=== PATIENT | female | born 1985 | race Caucasian/White ===

== ENCOUNTER 2019-07-03 13:00 | Outpatient (CLI) | payer OTHER, SELFPAY ==
[2019-07-03] VITALS (12 sets, daily range): BP systolic 105–122; BP diastolic 63–73; PULSE 60–95; TEMP 98–98.3; O2SAT 93–100; BMI 23.8
[2019-07-03 13:30] LABS: Mucous, Urine 0 SEEN /hpf (<or=2+)
[2019-07-03 13:42] LABS: Color, Urine Yellow (Yellow); Glucose, Dipstick Normal (Normal); Leukocyte Esterase-Dipstick 25 /ul (Negative); Nitrite-Dipstick Negative (Negative); Occult Blood-Urine 250 /ul (Negative); Protein-Dipstick 15 mg/dl (Negative); Urine Bilirubin Dipstick Negative (Negative); Urine Clarity Sl. Cloudy (Clear); Urine Urobilinogen Normal (Normal)
[2019-07-03 13:47] LABS: Ketone-Dipstick 150 mg/dl (Negative)
[2019-07-03 13:59] LABS: White Blood Cells 5-10 SEEN /hpf (0-5)
[2019-07-03 14:00] LABS: Bacteria 3+ /hpf (None Seen); Red Blood Cells-Urine > 100 SEEN /hpf (0-5); Squamous Epithelial Cells - UA 10-25 SEEN /hpf (5-10)
[2019-07-03] MEDS: Lactated Ringers 1,000 ML 500 ML IV (14:00)
[2019-07-03] MEDS: HYDROmorphone 1 MG/ML Syringe IV (14:16)
[2019-07-03 14:24] LABS: Prothrombin Time (Protime)PT. 13.2 SECONDS (11.7-14.9)
[2019-07-03 14:25] LABS: Partial Thromboplast Time 31.3 Seconds (24.1-36.2)
[2019-07-03 14:27] LABS: Absolute Lymphocyte Count 1.58 X10^3/uL (0.83-4.51); Absolute Neutrophil Count 6.4 X10^3/uL (2.0-7.7); Basophil# 0.01 X10^3/uL; Basophil% 0.1 % (0-1); Eosinophil# 0.02 X10^3/uL; Eosinophils% 0.2 % (0-5); Hematocrit 36.2 % (37-47); Lymphocyte # 1.58 X10^3/ul (4.0); Lymphocyte % 18.9 % (19-41); Mean Corp Hgb Conc 33.1 g/dL (32-36); Mean Corpuscular Hgb 28.9 pg (27.0-32.0); Mean Corpuscular Volume 87.2 fL (81-99); Mean Platelet Vol. 13.8 fl (6.2-12.0); Monocyte# 0.32 X10^3/uL; Monocyte% 3.8 % (0-10); NRBC Flagged by Analyzer 0 % (0-5); Neutrophil # 6.39 X10^3/uL (2.7-7.7); Neutrophil % 76.6 % (47-70); Platelet Count 101 K/mm3 (150-450); RBC Distribution Width CV 13.1 % (11.6-14.6); RBC Distribution Width SD 41.4 fl (35.1-43.9); Red Blood Count 4.15 M/mm3 (4.2-5.4); White Blood Count 8.4 K/mm3 (4.4-11.0)
[2019-07-03 14:29] LABS: Creatinine, Serum 0.55 mg/dL (0.55-1.02)
[2019-07-03 14:30] LABS: AST(SGOT) 15 U/L (15-37); Alanine Aminotransfer ALT/SGPT 13 U/L (13-56); EST Glomerular Filtration Rate 135 mL/min (>60); Est Glom Filt Rate - Afr Amer 163 mL/min (>60)
[2019-07-03 14:33] LABS: Protein, Urine (Random) 31.7 mg/dL (<11.9); Protein:Creat Ratio 353 mg/g CRE (0-200)
[2019-07-03] MEDS: Cefazolin 2 GM in 0.9% Normal Saline 100 ML IV (16:06)
[2019-07-03] MEDS: Acetaminophen 500 MG Tablet 1000 MG PO (17:11)
[2019-07-03] MEDS: Ondansetron 4 MG/2 ML Vial IV (18:12)
--- NOTE | 2019-07-03 18:13 | OB.TRI.NOTE ---
History of Present Illness Date of Service: 07/03/19 Reason For Visit: RT SIDE FLANK PAIN Date of Service: 07/03/19 Final MARLENY: 10/06/19 Final MARLENY Source: LMP Gestational age: 26 Weeks and 3 Days History of Present Illness: 34-year-old 4 para 3 presents at 26 weeks 5 days planing of some right-sided pain. It started somewhat suddenly at 9 AM this morning when she was just doing her normal activities. It comes in waves. It feels very similar to when she is had kidney stones in the past. She does not feel like eating but she has been able to drink and stay hydrated. Took some Tylenol this morning but when the pain worsened she came in the labor and delivery triage. Pain is significantly improved after 1 dose of IV Dilaudid. She did have some nausea and then an emesis and states she feels somewhat better after this. She denies any fevers or chills. Allergies aloe vera Allergy (Verified 01/30/15 01:56) Rash Laboratory Studies: Laboratory Tests 07/03/19 07/03/19 07/03/19 Range/Units 14:00 14:00 14:00 WBC 8.4 (4.4-11.0) K/mm3 RBC 4.15 L (4.2-5.4) M/mm3 Hgb 12.0 (12.0-15.0) g/dL Hct 36.2 L (37-47) % MCV 87.2 (81-99) fL MCH 28.9 (27.0-32.0) pg MCHC 33.1 (32-36) g/dL RDW Std Deviation 41.4 (35.1-43.9) fl RDW Coeff of Donya 13.1 (11.6-14.6) % Plt Count 101 L (150-450) K/mm3 MPV 13.8 H (6.2-12.0) fl Immature Gran % (Auto) 0.400 (0.0-0.9) % Neut % (Auto) 76.6 H (47-70) % Lymph % (Auto) 18.9 L (19-41) % [place] % (Auto) 3.8 (0-10) % Eos % (Auto) 0.2 (0-5) % Baso % (Auto) 0.1 (0-1) % Absolute Neuts (auto) 6.4 (2.0-7.7) X10^3/uL Absolute Lymphs (auto) 1.58 (0.83-4.51) X10^3/uL Nucleated RBC % 0 (0-5) % PT (11.7-14.9) SECONDS INR APTT (24.1-36.2) Seconds Creatinine 0.55 (0.55-1.02) mg/dL Estim Creat Clear Calc 136.20 ml/min Est GFR (MDRD) Af Amer 163 (>60) mL/min Est GFR (MDRD) Non-Af 135 (>60) mL/min Uric Acid 3.0 (2.6-6.0) mg/dL AST 15 (15-37) U/L ALT 13 (13-56) U/L Urine Color (Yellow) Urine Clarity (Clear) Urine pH (5.0 - 8.0) Ur Specific [place] (1.002-1.030) Urine Protein (Negative) mg/dl Urine Glucose (UA) (Normal) mg/dl Urine Ketones (Negative) mg/dl Urine Occult Blood (Negative) /ul Urine Nitrite (Negative) Urine Bilirubin (Negative) mg/dL Urine Urobilinogen (Normal) mg/dl Ur Leukocyte Esterase (Negative) /ul Urine RBC (0-5) /hpf Urine WBC (0-5) /hpf Ur Squamous Epith Cells (5-10) /hpf Urine Bacteria (None Seen) /hpf Urine Mucus (<or=2+) /hpf U Random Total Protein 31.7 H (<11.9) mg/dL Urine Creatinine 89.80 (NO RANGE EST.) mg/dL Protein/Creatinin Ratio 353 H (0-200) mg/g CRE 07/03/19 07/03/19 Range/Units 14:00 13:15 WBC (4.4-11.0) K/mm3 RBC (4.2-5.4) M/mm3 Hgb (12.0-15.0) g/dL Hct (37-47) % MCV (81-99) fL MCH (27.0-32.0) pg MCHC (32-36) g/dL RDW Std Deviation (35.1-43.9) fl RDW Coeff of Donya (11.6-14.6) % Plt Count (150-450) K/mm3 MPV (6.2-12.0) fl Immature Gran % (Auto) (0.0-0.9) % Neut % (Auto) (47-70) % Lymph % (Auto) (19-41) % [place] % (Auto) (0-10) % Eos % (Auto) (0-5) % Baso % (Auto) (0-1) % Absolute Neuts (auto) (2.0-7.7) X10^3/uL Absolute Lymphs (auto) (0.83-4.51) X10^3/uL Nucleated RBC % (0-5) % PT 13.2 (11.7-14.9) SECONDS INR 1.0 APTT 31.3 (24.1-36.2) Seconds Creatinine (0.55-1.02) mg/dL Estim Creat Clear Calc ml/min Est GFR (MDRD) Af Amer (>60) mL/min Est GFR (MDRD) Non-Af (>60) mL/min Uric Acid (2.6-6.0) mg/dL AST (15-37) U/L ALT (13-56) U/L Urine Color Yellow (Yellow) Urine Clarity Sl. Cloudy (Clear) Urine pH 8.0 (5.0 - 8.0) Ur Specific [place] 1.010 (1.002-1.030) Urine Protein 15 H (Negative) mg/dl Urine Glucose (UA) Normal (Normal) mg/dl Urine Ketones 150 H (Negative) mg/dl Urine Occult Blood 250 H (Negative) /ul Urine Nitrite Negative (Negative) Urine Bilirubin Negative (Negative) mg/dL Urine Urobilinogen Normal (Normal) mg/dl Ur Leukocyte Esterase 25 H (Negative) /ul Urine RBC > 100 SEEN (0-5) /hpf Urine WBC 5-10 SEEN (0-5) /hpf Ur Squamous Epith Cells 10-25 SEEN (5-10) /hpf Urine Bacteria 3+ (None Seen) /hpf Urine Mucus 0 SEEN (<or=2+) /hpf U Random Total Protein (<11.9) mg/dL Urine Creatinine (NO RANGE EST.) mg/dL Protein/Creatinin Ratio (0-200) mg/g CRE Review of Systems Constitutional: Reports: Anorexia. Denies: Chills, Fever, Malaise, Weakness HEENT: Denies: Head Aches Cardiovascular: Denies: Chest Pain Respiratory: Denies: Shortness of Breath Gastrointestinal: Reports: Abdominal Pain, Nausea, Vomiting. Denies: Constipation, Diarrhea Genitourinary: Reports: Frequency. Denies: Dysuria, Hematuria, Retention, Urgency Skin: Denies: Rash Physical Exam General: Alert, Cooperative, No apparent distress Abdomen: Soft, Non-Distended, Gravid, Tender - no rebound, some voluntary guarding right lower quadrant. Fundus nontender, no referred pain, Appropriate for Gestational Age Extremities:: No edema NST - FHR Rate Baby A Baseline: normal Variability:: Moderate Accelerations:: 10 x 10 Decelerations:: None NST Reactive:: Appropriate for gestational age FHR Category:: Category I Uterine Activity:: quiet Impression/Plan 34-year-old 4 para 3 at 26-5/7 weeks gestation with some abdominal pain. Pain consistent with kidney stone. No fever, no rebound. Discussed with the patient my main concern is ruling out appendicitis. However, when I move the patient's bed, move her fundus from the left towards the right, and move her legs, she does not have any abdominal pain. At this point, patient is comfortable going home pushing fluids, using oxycodone as needed for breakthrough pain and taking Tylenol regularly. If the pain worsens, she should return and be reevaluated. If she has persistent nausea or vomiting, change in bowel movements, fever or any other issues she should notify the office or return immediately. There is no evidence of labor. Patient is comfortable with this plan.
== END 2019-07-03 19:20 | disposition home or self-care (01) ==
LOC: WPOUT 13:08 → OBT 13:08
PROVIDERS: Visit Provider Obstetrics & Gynecology
DX: O26.892 Other specified pregnancy related conditions, second trimester (principal); R10.9 Unspecified abdominal pain; R11.2 Nausea with vomiting, unspecified; Z3A.26 26 weeks gestation of pregnancy; Z87.442 Personal history of urinary calculi
CPT/HCPCS: 96361 ×4; 96365; 96374; 96375; 59050; 81001; 82565; 82570; 84156; 84450; 84460; 84550; 85025; 85610; 85730; 87086; 87088; 94760; 99218; J7120; G0378; J2405

== ENCOUNTER 2019-09-22 18:05 | Inpatient (IN) | payer OTHER, SELFPAY ==
[2019-07-03 13:21] VITALS: BMI 23.8
[2019-09-22] VITALS (19 sets, daily range): BP systolic 120–151; BP diastolic 79–103; PULSE 74–103; TEMP 36.6–37.9; O2SAT 97–98; BMI 26.5
[2019-09-22 17:11] LABS: Hematocrit 33.3 % (37-47); Hemoglobin 10.5 g/dL (12.0-15.0); Mean Corp Hgb Conc 31.5 g/dL (32-36); Mean Corpuscular Hgb 27.3 pg (27.0-32.0); Mean Corpuscular Volume 86.5 fL (81-99); POSITIVE COUNT YES; POSITIVE MORPHOLOGY YES; Platelet Count 75 K/mm3 (150-450); RBC Distribution Width SD 43.3 fl (35.1-43.9); Red Blood Count 3.85 M/mm3 (4.2-5.4); White Blood Count 5.8 K/mm3 (4.4-11.0)
[2019-09-22 17:19] LABS: Prothrombin Time (Protime)PT. 12.4 SECONDS (11.7-14.9); Scan Indicated on CBC? Y/N YES- FLAGS NOTED
[2019-09-22 17:20] LABS: Partial Thromboplast Time 31.3 Seconds (24.1-36.2)
[2019-09-22 17:33] LABS: Differential Comment SEE COMMENTS
[2019-09-22 17:34] LABS: Protein, Urine (Random) 45.7 mg/dL (<11.9); Protein:Creat Ratio 263 mg/g CRE (0-200)
[2019-09-22 17:38] LABS: AST(SGOT) 16 U/L (15-37); Alanine Aminotransfer ALT/SGPT 14 U/L (13-56); EST Glomerular Filtration Rate 103 mL/min (>60); Est Glom Filt Rate - Afr Amer 125 mL/min (>60); Estimated Creatinine Clearance 107.01 ml/min; Uric Acid 4.2 mg/dL (2.6-6.0)
--- NOTE | 2019-09-22 19:41 | PCM.HP.OB ---
History Date of Admission: 03/06/11 Final MARLENY: 10/06/19 Final MARLENY Source: US <20 weeks Gestational age: 38 Weeks and 0 Days History of this : This is a 34 year-old, 4 para 3 at 38-0/7 weeks with EDC of 10/06/2019 presents complaining of some mild intermittent visual changes and some elevated blood pressures. Denied any severe persistent headache. She denies epigastric pain. No regular contractions but some irregular cramping. [place] vaginal bleeding or leaking of fluid. Good movement. has been complicated to date by low platelets which may be gestational thrombocytopenia versus ITP. Following them and they have been trending down slowly. In addition, she had an abnormal sequential screen but a normal NIPT screen. She has also had kidney stones during the . Allergies aloe vera Allergy (Verified 09/22/19 16:40) Rash Home Medications: Home Medications Vits [Prenatabs FA ] 1 tablet PO DAILY 01/30/15 Smoking Status: Never smoker NST - FHR Rate Baby A Baseline: normal Variability:: Moderate Accelerations:: 15 x 15 Decelerations:: None NST Reactive:: Yes Uterine Activity:: Irregular contractions History Past Pregnancies: Past Pregnancies Delivery Date Name GA/ Weeks Outcome Route Wt Sex Labor Length Anesthesia Delivery Location Provider FOB Expected Delivery Method: Spontaneous Vaginal Review of Systems Constitutional: Denies: Chills, Fever Eyes: Reports: Blurred vision - intermittent and mild. HEENT: Denies: Difficulty Hearing Cardiovascular: Denies: Chest Pain Respiratory: Denies: Cough Gastrointestinal: Denies: Diarrhea, Vomiting Skin: Denies: Rash Neurological: Denies: Blurred vision, Slurred speech Physical Exam Vitals: Vital Signs Temp Pulse BP Pulse Ox 99.5 F H 98 151/103 H 97 09/22/19 19:23 09/22/19 19:24 09/22/19 19:24 09/22/19 19:24 General: Alert, Cooperative, No apparent distress Cardiovascular: Regular rate Lungs: Normal air movement Abdomen: Soft, Non Tender, Non-Distended, Gravid, Appropriate for Gestational Age Extremities:: No edema Assessment/Plan This is a 34 year-old, 4 para 3 at 38 weeks gestation with gestational hypertension. Risk benefits and alternatives to induction been discussed with patient, her questions were answered to her satisfaction she desires to proceed. No evidence of preeclampsia at this time. However, if blood pressures are in the severe range, develops other severe symptoms will initiate magnesium prophylaxis. Otherwise will admit for induction of labor. Pitocin induction of labor. Patient is comfortable this plan. She not have an epidural with any of her other deliveries. She is not an epidural candidate due to her gestational thrombocytopenia. Platelets are 75. She is not at increased risk of transfusion. The mean weight is less than 4500 g clinically and pelvis is clinically adequate to expect vaginal delivery.
[2019-09-22] MEDS: Lactated Ringers 1,000 ML 50 ML IV (19:50)
[2019-09-22] MEDS: Oxytocin 30 units/NS 500 ml 30 UNITS/500 ML IV.SOLN IV (19:50)
[2019-09-23] VITALS (21 sets, daily range): BP systolic 126–156; BP diastolic 79–105; PULSE 69–94; RESP 16–18; TEMP 36.4–37.7; O2SAT 95–99
[2019-09-23] MEDS: Ondansetron 4 MG/2 ML Vial IV ×2 (00:15→05:06)
[2019-09-23] MEDS: 0.9% Saline Lock 10 ML Syringe IV ×2 (00:15→05:06)
[2019-09-23] MEDS: Lactated Ringers 500 ML 999 ML IV ×2 (03:15→05:47)
[2019-09-23] MEDS: Oxytocin 30 units/NS 500 ml 30 UNITS/500 ML IV.SOLN 334 UNITS IV (08:05)
--- NOTE | 2019-09-23 08:38 | PCM.OPRPT ---
Problem List (1) 38 weeks gestation of Status: Acute (2) Multiparity Status: Acute (3) Gestational hypertension Status: Acute (4) History of ITP Status: Acute Report of Operation Date of Procedure: 09/23/19 Pre-Operative Diagnosis: 38 week gestation, chronic hypertension, multiparity, history ITP Post-Operative Diagnosis: As above Surgery/Procedure Performed:: Type of Anesthesia:: Local Special Medications: None Specimen's removed: Placenta Drains: None Estimated Blood Loss (mL): 100 Description of Procedure: Received a call that the patient was complete, and upon entering the room the patient had just delivered a viable male infant. The nurse reported an uncomplicated delivery with a loose nuchal cord x1. The was on maternal abdomen. Cord was already clamped. The cord was then cut. The placenta was delivered spontaneously and noted to be intact and normal-appearing with a three-vessel cord. A second-degree perineal laceration was noted. Local was injected. The second-degree laceration was repaired in usual fashion. Instrument and sponge counts were correct. Vaginal sweep was performed. Grafts/Implants Used: None - Complications None - Admit VTE Documentation VTE Present on Admission: No Vaginal Delivery Maternal Presentation: Medically Indicated Induction Medical Reason for Induction: Gestational Hypertension, - - ITP Amniotic Membrane Rupture Type: Artificial Amniotic Fluid Description: Clear Final MARLENY: 10/06/19 Gestational age: 38 Weeks and 1 Days Surgery/ Procedure Performed: Spontaneous Vaginal Delivery Type of Anesthesia: Local with 1% lidocaine Presentation: Vertex Placental Delivery Description: Spontaneous Cord Vessel Description: 3 Vessels Nuchal Cord Compression: Without compression Cord Entanglement: Around neck x 1, loose A gender: Male Episiotomy Description: None Laceration: 2nd degree Medications given after delivery: IV Pitocin Complications: None
[2019-09-23] MEDS: Acetaminophen 500 MG Tablet 1000 MG PO ×2 (09:04→16:50)
[2019-09-23] MEDS: Labetalol 100 MG Tablet PO (19:46)
[2019-09-24] VITALS (7 sets, daily range): BP systolic 110–128; BP diastolic 74–82; PULSE 73–89; RESP 16–185; TEMP 36.4–36.6
[2019-09-24] MEDS: Acetaminophen 500 MG Tablet 1000 MG PO ×2 (00:04→14:53)
[2019-09-24 05:06] LABS: Hematocrit 29.6 % (37-47); Hemoglobin 9.2 g/dL (12.0-15.0); Mean Corp Hgb Conc 31.1 g/dL (32-36); Mean Corpuscular Hgb 27.2 pg (27.0-32.0); Mean Corpuscular Volume 87.6 fL (81-99); Mean Platelet Vol. 14.9 fl (6.2-12.0); POSITIVE COUNT YES; Platelet Count 70 K/mm3 (150-450); RBC Distribution Width CV 14.3 % (11.6-14.6); RBC Distribution Width SD 45.2 fl (35.1-43.9); Red Blood Count 3.38 M/mm3 (4.2-5.4); White Blood Count 7.9 K/mm3 (4.4-11.0)
[2019-09-24 05:24] LABS: ALB/GLOB Ratio 0.8 RATIO (0.9-2.4); AST(SGOT) 19 U/L (15-37); Alanine Aminotransfer ALT/SGPT 15 U/L (13-56); Albumin, Serum 2.4 g/dL (3.2-5.0); Alkaline Phosphatase 102 U/L (45-117); Anion Gap 4 (5-15); BUN 9 mg/dL (7-18); Calcium,Total 8.4 mg/dL (8.5-10.1); Chloride 106 mmol/L (98-107); Creatinine, Serum 0.75 mg/dL (0.55-1.02); EST Glomerular Filtration Rate 94 mL/min (>60); Est Glom Filt Rate - Afr Amer 114 mL/min (>60); Estimated Creatinine Clearance 99.88 ml/min; Globulin 3.2 g/dL (2.2-4.2); Glucose 93 mg/dL (74-106); Potassium 4.4 mmol/L (3.5-5.1); Protein, Total 5.6 g/dL (6.4-8.2); Sodium Level 137 mmol/L (136-145)
[2019-09-24] MEDS: Labetalol 100 MG Tablet PO ×2 (07:11→20:50)
--- NOTE | 2019-09-24 08:21 | PCM.PN.OB ---
Patient Problems: Active and Suspected Problems 38 weeks gestation of (Acute) Multiparity (Acute) Gestational hypertension (Acute) History of ITP (Acute) Subjective: Patient doing well. She denies headache, vision changes, upper abdominal pain. She denies lightheadedness, dizziness, chest pain, shortness of breath, leg pain. Tolerating regular diet without nausea or vomiting. Ambulating and voiding without difficulty. Lochia normal. - Physical Exam Vitals/I&O's: Vital Signs Temp Pulse Resp BP Pulse Ox 97.5 F L 73 18 128/81 H 99 09/24/19 04:43 09/24/19 04:43 09/24/19 04:43 09/24/19 07:12 09/23/19 07:14 Oxygen Delivery Method Room Air Weight: 164 lb 3.91 oz Body Mass Index (BMI) 26.5 Intake and Output for Last 24 Hours 09/22/19 09/23/19 09/24/19 23:59 23:59 23:59 Intake Total 219.70 / 459.70 2694.80 / 2694.80 Output Total 300 / 400 1500 / 1500 Balance -80.30 / 59.70 1194.80 / 1194.80 General: Alert, No apparent distress HEENT: Atraumatic Abdomen: Soft, Non Tender, - - FF@U-1 Extremities: No edema Skin: No rashes Neurological: Neuro grossly intact Psych/Mental Status: Normal Affect, Appropriate Microbiology Past 72 Hours 09/22/19 19:05 Mucosa - Nasopharyngeal Coronavirus COVID-19 PCR - Final Laboratory Results 09/24/19 04:50: WBC 7.9, RBC 3.38 L, Hgb 9.2 L, Hct 29.6 L, MCV 87.6, MCH 27.2, MCHC 31.1 L, RDW Std Deviation 45.2 H, RDW Coeff of Donya 14.3, Plt Count 70 L, MPV 14.9 H 09/24/19 04:50: Sodium 137, Potassium 4.4, Chloride 106, Carbon Dioxide 27.0, Anion Gap 4 L, BUN 9, Creatinine 0.75, Estim Creat Clear Calc 99.88, Est GFR (MDRD) Af Amer 114, Est GFR (MDRD) Non-Af 94, BUN/Creatinine Ratio 12.0, Glucose 93, Calcium 8.4 L, Total Bilirubin 0.30, AST 19, ALT 15, Alkaline Phosphatase 102, Total Protein 5.6 L, Albumin 2.4 L, Globulin 3.2, Albumin/Globulin Ratio 0.8 L Current Medications Acetaminophen (Tylenol) 1,000 mg PO Q8H PRN PRN PRN Reason: Pain Score 1-3/10 Last Admin: 09/24/19 00:04 Dose: 1,000 mg Documented by: Bisacodyl (Dulcolax) 10 mg RECTAL UD PRN PRN Reason: If no BM Dibucaine (Dibucaine) 1 applic TOPICAL TID PRN PRN; Protocol PRN Reason: Discomfort Hydrocortisone (Hytone) 1 applic TOPICAL TID PRN PRN; Protocol PRN Reason: Discomfort Labetalol HCl (Trandate) 100 mg PO BID@0700,1900 SELINA Last Admin: 09/24/19 07:11 Dose: 100 mg Documented by: Methylergonovine Maleate (Methergine) 0.2 mg IM X1 PRN PRN Reason: Excess bleeding/uterine atony Ondansetron HCl (Zofran) 4 mg IV Q4H PRN PRN PRN Reason: Nausea Senna/Docusate Sodium (Senokot-S, Geovanna-Colace) 1 - 2 tablet PO DAILY PRN PRN PRN Reason: Constipation Simethicone (Mylicon) 80 mg PO PCHS PRN PRN Reason: Indigestion/Stomach pain Sodium Chloride () 5 - 15 ml IV UD PRN PRN Reason: SALINE FLUSH Medical Necessity - Tobacco Use Smoking Status: Never smoker Assessment/Plan All Active Problems 38 weeks gestation of (Acute) Multiparity (Acute) Gestational hypertension (Acute) History of ITP (Acute) Patient is day 1 from a vaginal delivery. She was induced for gestational hypertension. She has no symptoms of preeclampsia this morning. Her platelets went from 75-70, but the rest of her preeclampsia labs are normal. She does have a history of ITP. Labetalol 100 twice daily was started last night for blood pressure control. Her blood pressures were in the mild range, and today they are normal on the labetalol. Patient desires to go home today. Discussed monitoring blood pressures today and rechecking platelets this afternoon prior to discharge. Discussed 1 week follow-up with the office for blood pressure check.
--- NOTE | 2019-09-24 08:36 | DCINST_ITS ---
Discharge Diet: No Restrictions Discharge Activity: May Shower, May Take a Tub Bath May resume sexual activity in: 6 weeks Ice area for (Minutes): 15 Weight Bearing Status: Weight bearing as tolerated Lifting Restrictions: None Call your doctor if you observe: Fever of 101 or Higher, Inability to urinate, Inability to have a bowel movement, Using more than one pad per hour, Shortness of breath, Dizziness, Chest pain, Increased palpitations (irregular heartbeat), Calf discomfort, Uncontrolled pain Cleanse incision/area with: Soap & Water Additional Instructions: If you experience any of the following, contact your healthcare provider. * Bleeding that soaks a pad every hour for 2 hours * Fever 100.4 or higher * Unrelieved incision or abdominal pain * Swelling, redness, discharge or bleeding from your incision or episiotomy site * Your incision begins to separate * Problems urinating (including inability to urinate or burning while urinating). * Visual changes * Severe headache * Flu-like symptoms * Pain or redness in one of both of your breasts * Pain, warmth, tenderness or swelling in your legs, especially the calf area * Frequent nausea and vomiting * Symptoms of depression or anxiety If you experience any of the following, call 911 or go to the nearest Emergency Room. * Chest pain * Problems breathing * Seizure activity * Partial or complete paralysis of a body part, slurred speech, weakness or drooping of the face, or a sudden inability to walk or hold your balance Allergies/Adverse Reactions: Allergies aloe vera Allergy (Verified 09/22/19 16:40) Rash Medications to take at Discharge Vits [Prenatabs FA ] 1 tablet PO DAILY 01/30/15 Ferrous Sulfate 325 mg PO DAILY #60 tab 09/24/19 The following prescriptions were given: Ferrous Sulfate 325 mg PO DAILY #60 tab Transmission Status: Pending to [facility]/pharmacy #[id number] Please Follow Up With: Brittnee Garcia DO When: For virtual visit in 1-2 weeks for blood pressure check. 6 weeks for visit. Test Results: Test results from this visit will be discussed in further detail at your follow- up appointment, if applicable.
[2019-09-24 12:38] LABS: Hematocrit 30.2 % (37-47); Hemoglobin 9.4 g/dL (12.0-15.0); Mean Corp Hgb Conc 31.1 g/dL (32-36); Mean Corpuscular Hgb 27.2 pg (27.0-32.0); Mean Corpuscular Volume 87.3 fL (81-99); POSITIVE COUNT YES; POSITIVE MORPHOLOGY YES; Platelet Count 67 K/mm3 (150-450); RBC Distribution Width CV 14.5 % (11.6-14.6); RBC Distribution Width SD 45.1 fl (35.1-43.9); Red Blood Count 3.46 M/mm3 (4.2-5.4); White Blood Count 7.4 K/mm3 (4.4-11.0)
[2019-09-24 12:56] LABS: Scan Indicated on CBC? Y/N YES- FLAGS NOTED
[2019-09-25 01:39] VITALS: BP 134/80; PULSE 96; RESP 16; TEMP 36.4
[2019-09-25] MEDS: Acetaminophen 500 MG Tablet 1000 MG PO (01:39)
[2019-09-25 05:38] LABS: Hematocrit 28.7 % (37-47); Hemoglobin 8.8 g/dL (12.0-15.0); Mean Corp Hgb Conc 30.7 g/dL (32-36); Mean Corpuscular Hgb 27.2 pg (27.0-32.0); Mean Corpuscular Volume 88.6 fL (81-99); POSITIVE COUNT YES; POSITIVE MORPHOLOGY YES; Platelet Count 74 K/mm3 (150-450); RBC Distribution Width CV 14.6 % (11.6-14.6); RBC Distribution Width SD 46.7 fl (35.1-43.9); Red Blood Count 3.24 M/mm3 (4.2-5.4)
[2019-09-25 05:40] LABS: Scan Indicated on CBC? Y/N YES- FLAGS NOTED
[2019-09-25 08:00] VITALS: BP 125/72; PULSE 87; RESP 14; TEMP 36.6
[2019-09-25] MEDS: Labetalol 100 MG Tablet PO (08:11)
--- NOTE | 2019-09-25 08:56 | PN.OBGYN_ITS ---
Patient Problems: Active and Suspected Problems 38 weeks gestation of (Acute) Multiparity (Acute) Gestational hypertension (Acute) History of ITP (Acute) Subjective: Doing well per patient and nursing staff. Ambulating and taking PO without difficulty. Denies any chest pain, shortness of breath, headache, visual changes , leg pain or RUQ abdominal pain. Pain controlled. Lochia normal. Planning D/C home today. - Physical Exam Vitals/I&O's: Vital Signs Temp Pulse Resp BP Pulse Ox 97.8 F 87 14 125/72 H 99 09/25/19 08:00 09/25/19 08:00 09/25/19 08:00 09/25/19 08:00 09/23/19 07:14 Oxygen Delivery Method Room Air Weight: 164 lb 3.91 oz Body Mass Index (BMI) 26.5 Intake and Output for Last 24 Hours 09/23/19 09/24/19 09/25/19 23:59 23:59 23:59 Intake Total 2694.80 / 2694.80 Output Total 1500 / 1500 Balance 1194.80 / 1194.80 General: Alert, Oriented x3, Cooperative HEENT: Atraumatic, Normocephalic Neck: Trachea Midline Lungs: Clear to auscultation, Normal air movement, No rhonchi, No wheeze Cardiovascular: Regular rate, Regular Rhythm, No murmurs Abdomen: Bowel Sounds Present, Soft - fundus firm 3 below U Extremities: No edema - Suly's negative. No clonus. DTR +2/4 bilateral patellar Neurological: Deep Tendon Reflexes 2+/4 and Symmetrical Psych/Mental Status: Normal Affect, Appropriate Microbiology Past 72 Hours 09/22/19 19:05 Mucosa - Nasopharyngeal Coronavirus COVID-19 PCR - Final Laboratory Results 09/24/19 12:05: WBC 7.4, RBC 3.46 L, Hgb 9.4 L, Hct 30.2 L, MCV 87.3, MCH 27.2, MCHC 31.1 L, RDW Std Deviation 45.1 H, RDW Coeff of Donya 14.5, Plt Count 67 L, MPV TNP, Differential Comment 09/25/19 05:30: WBC 8.0, RBC 3.24 L, Hgb 8.8 L, Hct 28.7 L, MCV 88.6, MCH 27.2, MCHC 30.7 L, RDW Std Deviation 46.7 H, RDW Coeff of Donya 14.6, Plt Count 74 L, Differential Comment COMMENT Current Medications Acetaminophen (Tylenol) 1,000 mg PO Q8H PRN PRN PRN Reason: Pain Score 1-3/10 Last Admin: 09/25/19 01:39 Dose: 1,000 mg Documented by: Bisacodyl (Dulcolax) 10 mg RECTAL UD PRN PRN Reason: If no BM Dibucaine (Dibucaine) 1 applic TOPICAL TID PRN PRN; Protocol PRN Reason: Discomfort Hydrocortisone (Hytone) 1 applic TOPICAL TID PRN PRN; Protocol PRN Reason: Discomfort Labetalol HCl (Trandate) 100 mg PO BID@0700,1900 SELINA Last Admin: 09/25/19 08:11 Dose: 100 mg Documented by: Methylergonovine Maleate (Methergine) 0.2 mg IM X1 PRN PRN Reason: Excess bleeding/uterine atony Ondansetron HCl (Zofran) 4 mg IV Q4H PRN PRN PRN Reason: Nausea Senna/Docusate Sodium (Senokot-S, Geovanna-Colace) 1 - 2 tablet PO DAILY PRN PRN PRN Reason: Constipation Simethicone (Mylicon) 80 mg PO PCHS PRN PRN Reason: Indigestion/Stomach pain Sodium Chloride () 5 - 15 ml IV UD PRN PRN Reason: SALINE FLUSH Medical Necessity - Tobacco Use Smoking Status: Never smoker Assessment/Plan All Active Problems 38 weeks gestation of (Acute) Multiparity (Acute) Gestational hypertension (Acute) History of ITP (Acute) A:PPD #3 Gestational Hypertension ITP Acute Blood Loss anemia P: 1) Routine and discharge instruction 2) 3) Pain management, will use OTC 4) To continue Labetalol at home. 5) Hgb 8.8, to start Ferrous Sulfate, rx sent 6) Follow up in 2 days in office for BP check and repeat CBC
--- NOTE | 2019-09-25 09:01 | DCINST_ITS ---
Discharge Diet: No Restrictions Discharge Activity: May Shower, May Take a Tub Bath May resume sexual activity in: 6 weeks Ice area for (Minutes): 15 Weight Bearing Status: Weight bearing as tolerated Call your doctor if you observe: Fever of 101 or Higher, Inability to urinate, Inability to have a bowel movement, Using more than one pad per hour, Shortness of breath, Dizziness, Chest pain, Increased palpitations (irregular heartbeat), Calf discomfort, Uncontrolled pain Cleanse incision/area with: Soap & Water Additional Instructions: If you experience any of the following, contact your healthcare provider. * Bleeding that soaks a pad every hour for 2 hours * Fever 100.4 or higher * Unrelieved incision or abdominal pain * Swelling, redness, discharge or bleeding from your incision or episiotomy site * Your incision begins to separate * Problems urinating (including inability to urinate or burning while urinating). * Visual changes * Severe headache * Flu-like symptoms * Pain or redness in one of both of your breasts * Pain, warmth, tenderness or swelling in your legs, especially the calf area * Frequent nausea and vomiting * Symptoms of depression or anxiety If you experience any of the following, call 911 or go to the nearest Emergency Room. * Chest pain * Problems breathing * Seizure activity * Partial or complete paralysis of a body part, slurred speech, weakness or drooping of the face, or a sudden inability to walk or hold your balance Allergies/Adverse Reactions: Allergies aloe vera Allergy (Verified 09/22/19 16:40) Rash Medications to take at Discharge Vits [Prenatabs FA ] 1 tablet PO DAILY 01/30/15 Ferrous Sulfate 325 mg PO DAILY #60 tab 09/24/19 Labetalol [Trandate (Beta Lacy)] 100 mg PO BID #60 tab 09/24/19 The following prescriptions were given: Ferrous Sulfate 325 mg PO DAILY #60 tab Transmission Status: Received by [facility]/pharmacy #[id number] Labetalol [Trandate (Beta Lacy)] 100 mg PO BID #60 tab Transmission Status: Received by [facility]/pharmacy #[id number] Please Follow Up With: Brittnee Garcia DO When: Call to make an appointment with your doctor in 2 days for BP check and CBC. Test Results: Test results from this visit will be discussed in further detail at your follow- up appointment, if applicable.
== END 2019-09-25 11:00 | disposition home or self-care (01) | DRG 806 ==
LOC: WPOUT 18:11 → WP 18:11
PROVIDERS: Obstetrics & Gynecology; Admitting Provider Obstetrics & Gynecology; Visit Provider Obstetrics & Gynecology
DX: O13.4 Gestational [pregnancy-induced] hypertension without significant proteinuria, complicating childbirth (principal); O99.12 Other diseases of the blood and blood-forming organs and certain disorders involving the immune mechanism complicating childbirth; Z37.0 Single live birth; D62 Acute posthemorrhagic anemia; D69.3 Immune thrombocytopenic purpura; O69.81X0 Labor and delivery complicated by cord around neck, without compression, not applicable or unspecified; O70.1 Second degree perineal laceration during delivery; Z3A.38 38 weeks gestation of pregnancy; O90.81 Anemia of the puerperium
CPT/HCPCS: 36415; 59025; 59050; 80053; 82565; 82570; 84156; 84450; 84460; 84550; 85027; 85610; 85730; 86850; 86900; 86901; 87635; 99218; G2023; J7120; A4216; G0378; J2405; U0004

== ENCOUNTER → 2019-10-28 | Outpatient (CLI) | payer OTHER, SELFPAY ==
[2019-10-28 15:05] VITALS: BMI 26.5
--- NOTE | 2019-10-28 15:05 | RAD_ITS ---
STUDY: X-RAY - LEFT FOOT CLINICAL: Female, 34 years old. ROLLED FOOT. PAIN LATERAL SIDE TECHNIQUE: 3 view(s) of the foot. COMPARISON: None. FINDINGS: Normal talus, calcaneus, and tarsal bones. Normal visualized subtalar, talonavicular, calcaneocuboid, tarsal and tarsometatarsal articulations. Normal metatarsi. Normal metatarsophalangeal joint of the great toe. Normal tibial and fibular sesamoid bones. Normal interphalangeal joint of the great toe. Normal phalanges of the great toe. Normal second through fifth metatarsophalangeal joints. Normal interphalangeal joints and phalanges of the lesser toes. The soft tissue structures are unremarkable. RAD/Foot min 3 Views IMPRESSION: Normal x-ray examination of the foot. Electronically Signed: Jesus Delgado MD at 16:41 EDT , Service support ,
== END | disposition home or self-care (01) ==
LOC: HPRAD 15:05
PROVIDERS: Referring Provider Physician Assistant; Visit Provider Physician Assistant
DX: M79.672 Pain in left foot (principal)
CPT/HCPCS: 73630

== ENCOUNTER 2020-10-01 13:35 | Outpatient (RCR) | payer OTHER, SELFPAY ==
[2019-10-28 15:05] VITALS: BMI 26.5
== END 2020-11-05 23:59 ==
LOC: IMMUN 13:35
PROVIDERS: PCP Family Medicine; Visit Provider Family Medicine
DX: Z23 Encounter for immunization (principal)
CPT/HCPCS: 0001A; 91300